=== PATIENT | female | born 1925 | race Caucasian/White ===

== ENCOUNTER 2016-09-06 02:17 | Inpatient (IN) | payer MEDICARE ==
[~2016-09-06] VITALS: Ht 152.4 cm; Wt 52.9 kg
--- NOTE | ~2016-09-06 | HP ---
[facility] AGE: 89 Y [address] ROOM: [place] [address] LOCATION: GPCU ADMIT DATE: 09/06/2016 History & Physical DISCHARGE DATE: FAMILY PHYSICIAN: PHYSICIAN, UNKNOWN ATTENDING PHYSICIAN: RUBIN SIGALA DATE OF SERVICE: CHIEF COMPLAINT: Epigastric and right upper quadrant pain. HISTORY OF PRESENT ILLNESS: This is an 89-year-old female who says that since this Tuesday about 3 days ago, she has developed these epigastric pain as well as a right upper quadrant pain associated with chills. This pain has been going on and off and for the last 2 days has become constant pain and has been getting worse that is why she went to the outside facility in [place] for evaluation. Over there, the patient was found to have cholecystitis with gallstone pancreatitis. The patient was referred here for further care. REVIEW OF SYSTEMS: As mentioned in history of present illness. All other systems were reviewed and were negative except those mentioned in history of present illness. PAST MEDICAL HISTORY: 1. Hypothyroidism. 2. Hypertension. 3. Systemic lupus erythematosus. 4. Gastroesophageal reflux disease. ALLERGIES: THE PATIENT DENIES ANY ALLERGIES. HOME MEDICATIONS: Currently has been reconciled. SOCIAL HISTORY: The patient denies any cigarette or any illegal drug or any alcohol use. FAMILY HISTORY: Father from COPD complication from heavy smoking. Mother from old age from a cause that she could not remember. PAST SURGICAL HISTORY: 1. Tubal ligation. PATIENT'S NAME: [facility] AGE: 89 Y [address] ROOM: [place] [address] LOCATION: GPCU ADMIT DATE: 09/06/2016 History & Physical DISCHARGE DATE: FAMILY PHYSICIAN: PHYSICIAN, UNKNOWN ATTENDING PHYSICIAN: RUBIN SIGALA 2. Cataract surgery. 3. Wrist surgery. 4. Tonsillectomy. PHYSICAL EXAMINATION: VITAL SIGNS: At the time of my evaluation, temperature 98.1, heart rate 70, respirations 16, blood pressure 187/86, saturation 98% on room air. GENERAL APPEARANCE: Alert and oriented x3, in no acute distress. HEENT: Pupils equally round and reactive to light. Extraocular muscles intact. She does have icteric sclerae bilaterally. Nasal turbinates are normal bilaterally. She does have jaundice as well under her tongue. Dry oral mucosa. NECK: No JVD. CARDIOVASCULAR: Regular rate and rhythm. Normal S1 and S2. No murmur. No rubs. No gallops. RESPIRATORY: Clear to auscultation. No rales. No rhonchi. No wheezing. No crackles. ABDOMEN: Tenderness to palpation in the epigastric and right upper quadrant. Johnson sign positive. No palpable mass. Bowel sounds present. Soft. Nondistended. EXTREMITIES: She has edema in bilateral lower extremities. SKIN: No ulcer. No rash. No cyanosis. NEUROLOGICAL: Grossly nonfocal. LABORATORY DATA: Currently, labs are pending. Labs from the outside facility on the day of transfer show sodium 136, potassium 4.1, CO2 22, chloride 99, anion gap 19, AST 83, ALT 59, total bilirubin 2.6, alkaline phosphatase 234, total protein 6.6, albumin 3.8, globulin 2.8, creatinine 0.8, BUN 20, glucose 116, calcium 9.3, GFR 72, amylase 581, lipase 5890. White blood cell 11.6, hemoglobin 11.1, hematocrit 31.9, platelet 256. IMAGING STUDIES: CT abdomen and pelvis with contrast from the outside facility on the day of transfer showed mild dilatation of uncertain etiology. Further evaluation with ERCP may be required. Moderately distended gallbladder is mildly thick walled and has precocious cystic fluid. The possibility of a cholecystitis is not excluded, indeterminate 7 mm right lower lobe nodule. ASSESSMENT AND PLAN: 1. Regarding her sepsis secondary to cholecystitis and gallstone pancreatitis. N.p.o. Can have ice chips. IV fluids for hydration. Antibiotic coverage with IV Zosyn. GI consult in the morning for possible ERCP. General surgery consult for possible near the future cholecystectomy. Further plan depends on clinical course. IV Zofran for PATIENT'S NAME: ANA LILIA VIRAMONTES [facility] AGE: 89 Y [address] ROOM: [id number] [place], [place] [address] LOCATION: GPCU ADMIT DATE: 09/06/2016 History & Physical DISCHARGE DATE: FAMILY PHYSICIAN: PHYSICIAN, UNKNOWN ATTENDING PHYSICIAN: RUBIN SIGALA nausea. IV morphine for p.r.n. for pain. 2. Regarding her hypothyroidism. We will get a TSH and modify the home dose of levothyroxine if necessary. 3. Regarding her hypertension. Currently, systolic blood pressure is in the 180s. I will resume some of her home medications due to sepsis. In addition, I will add labetalol p.r.n. and also hydralazine p.r.n. Currently, the home medication is being reconciled. 4. Regarding her gastroesophageal reflux disease. Continue the home medication which includes proton pump inhibitor. 5. Regarding her systemic lupus erythematosus. Currently not in flare. We will continue the home medication which currently the home medication list is being reconciled. 6. DVT prophylaxis. She will be on compression devices in anticipation for procedure. 7. She is a DNR/DNI. Time spent in care on the day of admission 45 minutes where 15 minutes was spent on chart review and the remainder of the time was spent on interview and physical examination and counseling. The counseling includes going over the plan of care with the patient and the patient's son at the bedside and I answered all the questions and concerns to their satisfaction. Further plan will depend on clinical course. RUBIN SIGALA MD CC/rachel /[id number] D: [id number] T: [id number] HISTORY & PHYSICAL
--- NOTE | ~2016-09-06 | OR ---
PATIENT'S NAME: WANDER [facility] AGE: 89 Y [address] ROOM: [address] [address] LOCATION: GPCU ADMIT DATE: 09/06/2016 OR/Procedure Report DISCHARGE DATE: FAMILY PHYSICIAN: Juan Miguel Polo MD ATTENDING PHYSICIAN: RUBIN SIGALA SURGEON: Isidro Lemus MD MOBILE SALES ASSISTANT: Deborah Coto PA-C. DATE OF PROCEDURE: 09/08/2016 PREOPERATIVE DIAGNOSES: 1. History of gallstone pancreatitis. 2. Chronic cholecystitis, sludge. POSTOPERATIVE DIAGNOSES: 1. Acute cholecystitis, cholelithiasis. 2. No filling defects in common bile duct. PROCEDURE: Laparoscopic cholecystectomy with intraoperative cholangiogram. ANESTHESIA: General, 25 mL 0.5% Marcaine. SPECIMEN: Gallbladder with purulent bile and stone debris. CHOLANGIOGRAM FINDINGS: Correct anatomy identified. Mildly dilated common bile duct, but taper into the ampulla with free flow of contrast into the duodenum. No filling defects. INDICATION: The patient is an 89-year-old young lady, admitted to the hospital with gallstone pancreatitis over the observation. Her liver function tests were resolving. MRCP did not find any common bile duct stone, it was elected to do a gallbladder removal for cholecystitis on ultrasound. We planned a cholangiogram for a common bile duct assessment. DESCRIPTION OF PROCEDURE: After an informed consent, the patient was taken to the operating room, and after general endotracheal anesthesia, the patient's abdomen was prepped and draped into a sterile field. Time-out performed. We confirmed the patient, planned procedure, and administration of preop antibiotics. Local anesthetic was infiltrated prior to each incision, the first one made below the umbilicus and carried down to identify the anterior fascia through which a Veress needle inserted and pneumoperitoneum created. Trocar and laparoscope were inserted under direct vision, and the remaining trocars were placed. The gallbladder was pale, it was distended, it was thick walled, it was retracted cephalad and laterally and we stripped down edematous hepatoduodenal ligament. There was a mildly dilated cystic duct which we circumferentially isolated, placed a cholangiogram catheter and used Isovue-30 PATIENT'S NAME: W[facility]ER [facility] AGE: 89 Y [address] ROOM: [address] [address] LOCATION: [facility] ADMIT DATE: 09/06/2016 OR/Procedure Report DISCHARGE DATE: FAMILY PHYSICIAN: Juan Miguel Polo MD ATTENDING PHYSICIAN: RUBIN SIGALA contrast and performed the cholangiogram with the above-mentioned results. We removed the catheter, clipped the duct x3 distally, and divided. Cystic artery was clipped and divided. The gallbladder was removed from liver bed, placed into an EndoCatch bag, and brought out through the umbilical incision. We irrigated the right upper quadrant. We obtained hemostasis with electrocautery to the gallbladder fossa. We then removed the trocar, repaired the midline fascia defects with 0 Vicryl, skin closed with subcuticular 4-0 Vicryl. Steri-Strips and sterile dressings were applied. The patient tolerated the procedure well and transferred to recovery room in stable condition. ISIDRO LEMUS MD WTS/modl /[id number] CC: Juan Miguel Polo MD d: 09/08/16 1844 t: 09/10/16 0912, OPERATIVE SUMMARY
--- NOTE | ~2016-09-06 | CON ---
PATIENT'S NAME: ANA LILIA VIRAMONTES [facility] AGE: 89 Y [address] ROOM: [id number] [place], [place] [address] LOCATION: GPCU ADMIT DATE: 09/06/2016 Consultation DISCHARGE DATE: FAMILY PHYSICIAN: Juan Miguel Polo MD ATTENDING PHYSICIAN: RUBIN SIGALA DATE OF CONSULTATION: 09/06/2016 REFERRING PHYSICIAN: Kelton Castellon MD REASON FOR CONSULTATION: Abdominal pain, elevated liver function tests. HISTORY OF PRESENT ILLNESS: This is a very pleasant 89-year-old female who was recently transferred from [facility] with abdominal pain in the right upper quadrant as well as mid-epigastric area. The patient states that on Tuesday the symptoms began intermittently, but became progressively worse with radiation into the right quadrant as well as into her back. She denied any associated nausea or vomiting at that time, as well as fever or chills. She also denies any change in her bowel patterns during this time. She was evaluated at [facility] with lab noted with increased elevated liver function tests including total bilirubin of 2.6, AST of 83, ALT of 59, lipase was also elevated at 5890, white blood cell count was mildly elevated at 11.6. A CT was completed showing hypervascular lesion; hemangioma; intrahepatic and extrahepatic biliary dilation of the common bile duct measuring 8 mm at the pancreatic head; gallbladder was mildly distended, thick walled with pericholecystic fluid. The patient was transferred to [facility] for further evaluation. The patient was seen and examined. She does state that the pain is intermittently in intensity. She does deny any magalie fever or chills. She has been afebrile while at [facility]. On evaluation, the patient's laboratory was completed, which now showing white blood cell count of 15.8, total bilirubin increased at 4.3, AST of 95, ALT of 62, alkaline phosphatase of 241, and lipase decreased to 4837. The patient denies any acute chest pain, chest pressure, or shortness of breath. She does endorse some abdominal pain in her mid epigastric area with radiation into her back as well as right upper quadrant. Denies any magalie fever, chills, nausea, or vomiting. PAST MEDICAL HISTORY: Hypothyroidism, hypertension, systemic lupus, and gastroesophageal reflux disease. PAST SURGICAL HISTORY: [facility] AGE: 89 Y [address] ROOM: [place] [address] LOCATION: GPCU ADMIT DATE: 09/06/2016 Consultation DISCHARGE DATE: FAMILY PHYSICIAN: Juan Miguel Polo MD ATTENDING PHYSICIAN: RUBIN SIGALA Tubal ligation, cataract, wrist, and tonsillectomy. SOCIAL HISTORY: Denies any ongoing toxic habits. FAMILY HISTORY: The patient's father had COPD. ALLERGIES: PEANUT CAUSES ANAPHYLAXIS. CURRENT MEDICATIONS: Please refer to the medication administration record. REVIEW OF SYSTEMS: An all-point review of systems was completed. All were negative except for those identified in the history of present illness. PHYSICAL EXAMINATION: GENERAL: [facility] 89-year-[facility] female who appears to be in no acute distress. VITAL SIGNS: Temperature 98.2, pulse 61, respirations 15, blood pressure 162/68, and oxygen saturations 97% on room air. SKIN: [place], warm, dry. No jaundice. HEENT: Head is normocephalic and atraumatic. Pupils equal, round, and reactive to light. Sclerae are mildly icteric. Oral mucosa is pink and moist. No thyromegaly. NECK: Soft and supple. CARDIOVASCULAR: Regular. Normal S1, S2. RESPIRATORY: Respirations are even and unlabored. Lungs are clear to auscultation. ABDOMEN: Soft, round, and mildly distended. Bowel sounds are hypoactive x4 quadrants. Positive Johnson's with negative rebound and guarding. MUSCULOSKELETAL: No muscle weakness or atrophy. EXTREMITIES: No clubbing, cyanosis, or edema. NEUROLOGICAL: 1+ bilateral pitting edema noted to bilateral lower extremities. ASSESSMENT AND PLAN: Again, this is a [facility] 89-year-old female, admitted from [facility] with acute cholecystitis, elevated liver function tests, as well as pancreatitis. 1. Elevated liver function tests. At this time, this was discussed with Dr. Navarro Jackson. We will go forth with an MRCP for further evaluation of the patient's biliary tree, ruling out choledocholithiasis versus [facility] AGE: 89 Y [address] ROOM: [place] [address] [facility] AD[facility] DATE: 09/06/2016 Consultation DISCHARGE DATE: FAMILY PHYSICIAN: Juan Miguel Polo MD ATTENDING PHYSICIAN: RUBIN SIGALA. Further recommendations to be given status post MRCP. 2. Cholecystitis. Surgery has evaluated the patient. We will await for MRCP for further recommendations. 3. Pancreatitis secondary to likely gallstone. Continue IV hydration. The patient is on Zosyn in lieu of her cholangitic symptoms as well, this should be continued. 4. Cholangitis. The patient currently is on Zosyn, this should be continued. Further recommendations to be given after receipt of MRCP. Thank you for this consult. AR GAMEZ APRN FOR MD CODY ARMENDARIZ/rachel /[id number] d: 09/06/162022 t: 09/14/16 0742, CONSULTATION REPORT
--- NOTE | ~2016-09-06 | CON ---
[facility] AGE: 89 Y [address] ROOM: [place] [address] LOCATION: GPCU ADMIT DATE: 09/06/2016 Consultation DISCHARGE DATE: FAMILY PHYSICIAN: Juan Miguel Polo MD ATTENDING PHYSICIAN: RUBIN SIGALA DATE OF CONSULTATION: 09/06/2016 CHIEF COMPLAINT: Right upper quadrant and epigastric pain. HISTORY OF PRESENT ILLNESS: An 89-year-old female, states she had an onset of epigastric pain on Tuesday, that was intermittent, off and on, but slowly getting worse, radiating to the right upper quadrant and then around to her back. She denies any nausea or vomiting during this time. She denies any change in bowel patterns during this time. She states that she has never had a similar event. She was see at an outside hospital and worked up with labs and CT, found to have cholecystitis with gallstone pancreatitis. She was transferred to [facility] for further evaluation and care. Reason for consultation for possible cholecystectomy. REVIEW OF SYSTEMS: GENERAL: No fever, no chills. HEENT: No change in vision. No trouble swallowing. PULMONARY: No cough. CARDIAC: No palpitations, no chest pain. GI: Negative for nausea and vomiting. Change in bowel pattern. Positive abdominal pain. MUSCULOSKELETAL: Positive for lower extremity, mild. All other systems negative. PAST MEDICAL HISTORY: 1. Hypothyroidism. 2. Hypertension. 3. Systemic lupus erythematosus. 4. Gastroesophageal reflux disease. ALLERGIES: NO KNOWN ALLERGIES. HOME MEDICATIONS: See med list. PATIENT'S NAME: ANA LILIA VIRAMONTES [facility] AGE: 89 Y [address] ROOM: [place] [address] LOCATION: GPCU ADMIT DATE: 09/06/2016 Consultation DISCHARGE DATE: FAMILY PHYSICIAN: Juan Miguel Polo MD ATTENDING PHYSICIAN: RUBIN SIGALA SOCIAL HISTORY: Denies cigarettes or alcohol use. FAMILY HISTORY: Father with COPD secondary to smoking. PAST SURGICAL HISTORY: Tubal ligation, cataract, wrist, tonsillectomy. PHYSICAL EXAMINATION: VITAL SIGNS: BP 132/63, heart rate 91, respirations 16, temperature 98, oxygen saturation 96% on room air. GENERAL: No apparent distress. Alert, oriented. HEENT: Eyes without scleral icterus, conjunctival surface is moist. Mucous membrane is moist. NECK: Supple, no adenopathy. PULMONARY: Clear to auscultation. CARDIAC: Regular rate and rhythm. ABDOMEN: Bowel sounds positive, generalized tenderness; however, more severe in the epigastric and right upper quadrant. Positive Johnson, negative rebound, negative guarding. EXTREMITIES: 1+ bilateral lower extremities pitting edema, peripheral pulses present x4. ASSESSMENT AND PLAN: An 89-year-old female admitted from outside hospital for cholecystitis and gallstone pancreatitis. 1. Cholecystitis: We will continue to monitor at this point and plan for possible cholecystectomy once her pancreatitis has calmed down. 2. Pancreatitis: She is also being followed by GI, who is planning a possibly ERCP today. 3. Hypertension: Continue home medications per hospitalist. 4. Hypothyroid: Continue home meds per hospitalist. 5. SLE: Continue medications per hospitalist. GEE SAGASTUME MD RESIDENT FOR DEMI LEMUS MD MR/modl /[id number] d: 09/06/165 t: 09/06/162034, CONSULTATION REPORT
--- NOTE | ~2016-09-06 | DS ---
PATIENT'S NAME: ANA LILIA VIRAMONTES [facility] AGE: 89 Y [address] ROOM: [address] [place], [place] [address] LOCATION: GPCU ADMIT DATE: 09/06/2016 Discharge Summary DISCHARGE DATE: 09/10/2016 FAMILY PHYSICIAN: Juan Miguel Polo MD ATTENDING PHYSICIAN: Abdirahman Cheng DISCHARGE DIAGNOSES: 1. Cholangitis secondary to gallstones. 2. Cholecystitis secondary to gallstones. 3. Pancreatitis secondary to gallstones. 4. Hepatitis secondary to gallstones. 5. Hypertension. 6. Hypothyroidism. 7. Lupus, chronic. 8. Gastroesophageal reflux disease. 9. Anemia, chronic and postop. PROCEDURES: She had a laparoscopic cholecystectomy with intraoperative cholangiogram, Dr. Isbell. REASON FOR ADMISSION: Abdominal pain. Initial white count was 11.1, came down to normal; initial hemoglobin was 8.4, it is up to 9.1, so it is low but stable; platelets have been normal. Her electrolytes and kidney function have remained normal. Chloride was off slightly, but everything else was normal. Her potassium did dip down, but it on her last check was 4.0, and she is doing well. Albumin is low with secondarily decreased calcium. ALT has come down from 68 to 67, ALT is normalized, alkaline phosphatase has reduced from 163 to 148, total bilirubin from 4.9 to 1.3. Urine was benign. Lipase initially was 635, down to 362. Amylase is checked, it remains elevated, we do not have a trend, I suspect it is on the way down because clinically she is much better. HOSPITAL COURSE: Postop, as I said, was one of trending improvement. The intraoperative cholangiogram showed no intraductal filling defects. She will be discharged on diet as tolerated with emphasis on protein and recovery. Activity will be as tolerated. Dr. Isbell said he could see her p.r.n., but no appointment scheduled with him, we will have her see primary care, Dr. Polo, in [place] in 2 weeks. PHYSICAL EXAMINATION: GENERAL: Today, she looks wonderful, smiling. CHEST: Clear. HEART: Regular rate and rhythm without murmur. ABDOMEN: Belly is soft, only tender in the right upper quadrant but appropriately. No HSM or masses. EXTREMITIES: Non-swollen. PATIENT'S NAME: ANA LILIA VIRAMONTES [facility] AGE: 89 Y [address] ROOM: [place] [address] LOCATION: GPCU ADMIT DATE: 09/06/2016 Discharge Summary DISCHARGE DATE: 09/10/2016 FAMILY PHYSICIAN: Juan Miguel Polo MD ATTENDING PHYSICIAN: Abdirahman Cheng DISPOSITION: She is ready to get out of here. MEDICATIONS: Per nursing med recon form, reference is made to that. Note that discharge took less than 0.5 hour. MD CHUCK AU/modl /[id number] d: 09/11/16 0200 t: 09/13/16 1311, DISCHARGE SUMMARY
--- NOTE | ~2016-09-06 | CON ---
[facility] AGE: 89 Y [address] ROOM: [place] [address] LOCATION: GPCU ADMIT DATE: 09/06/2016 Consultation DISCHARGE DATE: FAMILY PHYSICIAN: Juan Miguel Polo MD ATTENDING PHYSICIAN: RUBIN SIGALA DATE OF CONSULTATION: 09/06/2016 CHIEF COMPLAINT: Right upper quadrant and epigastric pain. HISTORY OF PRESENT ILLNESS: An 89-year-old female, states she had an onset of epigastric pain on Tuesday, that was intermittent, off and on, but slowly getting worse, radiating to the right upper quadrant and then around to her back. She denies any nausea or vomiting during this time. She denies any change in bowel patterns during this time. She states that she has never had a similar event. She was see at an outside hospital and worked up with labs and CT, found to have cholecystitis with gallstone pancreatitis. She was transferred to [facility] for further evaluation and care. Reason for consultation for possible cholecystectomy. REVIEW OF SYSTEMS: GENERAL: No fever, no chills. HEENT: No change in vision. No trouble swallowing. PULMONARY: No cough. CARDIAC: No palpitations, no chest pain. GI: Negative for nausea and vomiting. Change in bowel pattern. Positive abdominal pain. MUSCULOSKELETAL: Positive for lower extremity, mild. All other systems negative. PAST MEDICAL HISTORY: 1. Hypothyroidism. 2. Hypertension. 3. Systemic lupus erythematosus. 4. Gastroesophageal reflux disease. ALLERGIES: NO KNOWN ALLERGIES. HOME MEDICATIONS: See med list. PATIENT'S NAME: ANA LILIA VIRAMONTES [facility] AGE: 89 Y [address] ROOM: [place] [address] LOCATION: GPCU ADMIT DATE: 09/06/2016 Consultation DISCHARGE DATE: FAMILY PHYSICIAN: Juan Miguel Polo MD ATTENDING PHYSICIAN: RUBIN SIGALA SOCIAL HISTORY: Denies cigarettes or alcohol use. FAMILY HISTORY: Father with COPD secondary to smoking. PAST SURGICAL HISTORY: Tubal ligation, cataract, wrist, tonsillectomy. PHYSICAL EXAMINATION: VITAL SIGNS: BP 132/63, heart rate 91, respirations 16, temperature 98, oxygen saturation 96% on room air. GENERAL: No apparent distress. Alert, oriented. HEENT: Eyes without scleral icterus, conjunctival surface is moist. Mucous membrane is moist. NECK: Supple, no adenopathy. PULMONARY: Clear to auscultation. CARDIAC: Regular rate and rhythm. ABDOMEN: Bowel sounds positive, generalized tenderness; however, more severe in the epigastric and right upper quadrant. Positive Johnson, negative rebound, negative guarding. EXTREMITIES: 1+ bilateral lower extremities pitting edema, peripheral pulses present x4. ASSESSMENT AND PLAN: An 89-year-old female admitted from outside hospital for cholecystitis and gallstone pancreatitis. 1. Cholecystitis: We will continue to monitor at this point and plan for possible cholecystectomy once her pancreatitis has calmed down. 2. Pancreatitis: She is also being followed by GI, who is planning a possibly ERCP today. 3. Hypertension: Continue home medications per hospitalist. 4. Hypothyroid: Continue home meds per hospitalist. 5. SLE: Continue medications per hospitalist. GEE SAGASTUME MD RESIDENT FOR DEMI LEMUS MD MR/modl /[id number] d: 09/06/16 1305 t: 09/29/16 1609, CONSULTATION REPORT
[2016-09-06] MEDS ORDERED: BYSTOLIC10 MG PO (02:47)
[2016-09-06] MEDS ORDERED: DIOVAN80 MG PO (02:48)
[2016-09-06] MEDS ORDERED: PLAQUENIL200 MG PO (02:48)
[2016-09-06] MEDS ORDERED: K-TAB 10MEQ10 MEQ PO (02:48)
[2016-09-06] MEDS ORDERED: NORVASC5 MG PO (02:48)
[2016-09-06] MEDS ORDERED: CLINORIL200 MG PO (02:49)
[2016-09-06] MEDS ORDERED: PRILOSEC20 MG PO (02:49)
[2016-09-06] MEDS ORDERED: LEVOTHROID (SY50 MCG PO (02:50)
[2016-09-06 04:09] LABS: HEMATOCRIT 29.7 % (30.0-46.0); HEMOGLOBIN 10.4 g/dL (10.0-15.0); MCH 32.2 pg (27.0-34.0); MPV 9.5 fl (9.4-12.4); PLATELET COUNT 218 K/uL (150-450); RBC 3.23 M/uL (3.00-5.00); RDW-CV 12.6 % (11.9-14.6); WBC 15.8 K/uL (4.0-11.0)
[2016-09-06 04:26] LABS: INR - (THERAPEUTIC) 0.93 (0.92-1.07); PROTIME 9.8 SECONDS (9.8-11.4); PTT 25 SECONDS (25-32)
[2016-09-06 04:34] LABS: ALBUMIN 3.1 gm/dL (3.5-5.0); ANION GAP 13.3 (10.0-19.0); CALCIUM 8.3 mg/dL (8.5-10.5); CREATININE 0.9 mg/dL (0.5-1.1); POTASSIUM 3.3 mMol/L (3.7-5.1); TOTAL BILIRUBIN 3.7 mg/dL (0.0-1.5); TOTAL PROTEIN 6.4 g/dL (6.0-8.4)
[2016-09-06 05:01] LABS: CPK 45 IU/L (21-215)
[2016-09-06 06:01] LABS: ABSOLUTE NEUTROPHIL CT (ANC) 14.9 K/uL (1.8-7.8); BANDED NEUTROPHIL # 1.9 K/uL (0.0-0.1); BANDED NEUTROPHILS % 12 %; LYMPHOCYTE # 0.6 K/uL (0.8-4.0); LYMPHOCYTE % 4 %; MONOCYTE # 0.3 K/uL (0.0-1.0); SEGMENTED NEUTROPHIL % 82 %
[2016-09-06 09:15] LABS: HEMOGLOBIN 10.3 g/dL (10.0-15.0); MCH 32.2 pg (27.0-34.0); MCHC 34.3 gm/dL (32.0-36.5); MCV 93.8 fl (83.0-98.0); MPV 9.4 fl (9.4-12.4); RBC 3.2 M/uL (3.00-5.00); RDW-CV 12.8 % (11.9-14.6); WBC 17.7 K/uL (4.0-11.0)
[2016-09-06 09:25] LABS: INR - (THERAPEUTIC) 0.95 (0.92-1.07)
[2016-09-06 09:32] LABS: ALBUMIN 2.9 gm/dL (3.5-5.0); ANION GAP 13.1 (10.0-19.0); CALCIUM 8.3 mg/dL (8.5-10.5); POTASSIUM 4.1 mMol/L (3.7-5.1); TOTAL BILIRUBIN 4.3 mg/dL (0.0-1.5); TOTAL PROTEIN 6.1 g/dL (6.0-8.4)
[2016-09-06 16:35] LABS: BILIRUBIN URINE NEGATIVE (NEGATIVE); BLOOD URINE 50 /UL (NEGATIVE); COLOR URINE YELLOW (YELLOW); GLUCOSE URINE NEGATIVE (NEGATIVE); KETONE URINE NEGATIVE (NEGATIVE); LEUKOCYTES URINE 100 /UL (NEGATIVE); NITRITE URINE POSITIVE (NEGATIVE); PROTEIN URINE 30 mg/dL (NEGATIVE); SPEC GRAVITY URINE 1.015 (1.003-1.035); TURBIDITY URINE CLEAR (CLEAR); UROBILINOGEN URINE NORMAL (NORMAL)
[2016-09-06 16:54] LABS: BACTERIA URINE MODERATE (NEGATIVE)
[2016-09-07 03:32] LABS: HEMATOCRIT 24.8 % (30.0-46.0); HEMOGLOBIN 8.4 g/dL (10.0-15.0); MCH 31.9 pg (27.0-34.0); MCHC 33.9 gm/dL (32.0-36.5); MCV 94.3 fl (83.0-98.0); MPV 9.5 fl (9.4-12.4); RBC 2.63 M/uL (3.00-5.00); RDW-CV 13.4 % (11.9-14.6); WBC 11.1 K/uL (4.0-11.0)
[2016-09-07 03:41] LABS: INR - (THERAPEUTIC) 1.09 (0.92-1.07); PROTIME 11.5 SECONDS (9.8-11.4)
[2016-09-07 03:47] LABS: PLATELET COUNT 161 K/uL (150-450)
[2016-09-07 03:53] LABS: ALBUMIN 2.2 gm/dL (3.5-5.0); ANION GAP 12.7 (10.0-19.0); CREATININE 1.1 mg/dL (0.5-1.1); POTASSIUM 3.7 mMol/L (3.7-5.1); TOTAL BILIRUBIN 4.9 mg/dL (0.0-1.5)
[2016-09-07 04:58] LABS: BANDED NEUTROPHIL # 1.3 K/uL (0.0-0.1); BANDED NEUTROPHILS % 12 %; LYMPHOCYTE % 9 %; MONOCYTE # 0.1 K/uL (0.0-1.0); SEGMENTED NEUTROPHIL # 8.7 K/uL (1.8-7.8); SEGMENTED NEUTROPHIL % 78 %
[2016-09-08 04:17] LABS: BASOPHIL % 0.3 %; EOSINOPHIL # 0.2 K/uL (0.0-0.5); EOSINOPHIL % 2.8 %; HEMATOCRIT 25.3 % (30.0-46.0); HEMOGLOBIN 8.8 g/dL (10.0-15.0); IMMATURE GRANULOCYTE % 0.4 %; LYMPHOCYTE # 0.9 K/uL (0.8-4.0); LYMPHOCYTE % 11.3 %; MCH 32.2 pg (27.0-34.0); MCHC 34.8 gm/dL (32.0-36.5); MCV 92.7 fl (83.0-98.0); MONOCYTE # 0.6 K/uL (0.0-1.0); MONOCYTE % 7.3 %; MPV 9.7 fl (9.4-12.4); NEUTROPHIL % 77.9 %; NRBC % 0 /100WBC (0-0.00); PLATELET COUNT 182 K/uL (150-450); RBC 2.73 M/uL (3.00-5.00); RDW-CV 13.3 % (11.9-14.6); WBC 7.8 K/uL (4.0-11.0)
[2016-09-08 04:32] LABS: ALBUMIN 2.1 gm/dL (3.5-5.0); CALCIUM 8.2 mg/dL (8.5-10.5); CREATININE 0.7 mg/dL (0.5-1.1); TOTAL PROTEIN 5.2 g/dL (6.0-8.4)
[2016-09-08 04:43] LABS: ANION GAP 9.8 (10.0-19.0); POTASSIUM 2.8 mMol/L (3.7-5.1); TOTAL BILIRUBIN 1.9 mg/dL (0.0-1.5)
[2016-09-08 17:17] LABS: ANION GAP 11.2 (10.0-19.0); CALCIUM 8.2 mg/dL (8.5-10.5); CREATININE 0.6 mg/dL (0.5-1.1); POTASSIUM 3.2 mMol/L (3.7-5.1)
[2016-09-09 04:02] LABS: BASOPHIL % 0.3 %; EOSINOPHIL # 0.2 K/uL (0.0-0.5); EOSINOPHIL % 2.6 %; HEMATOCRIT 26.9 % (30.0-46.0); HEMOGLOBIN 9.1 g/dL (10.0-15.0); IMMATURE GRANULOCYTE % 0.3 %; LYMPHOCYTE # 0.9 K/uL (0.8-4.0); LYMPHOCYTE % 11.7 %; MCH 31.7 pg (27.0-34.0); MCHC 33.8 gm/dL (32.0-36.5); MCV 93.7 fl (83.0-98.0); MONOCYTE # 0.5 K/uL (0.0-1.0); MONOCYTE % 6.7 %; MPV 9.9 fl (9.4-12.4); NEUTROPHIL % 78.4 %; NRBC % 0 /100WBC (0-0.00); PLATELET COUNT 210 K/uL (150-450); RBC 2.87 M/uL (3.00-5.00); RDW-CV 13.3 % (11.9-14.6); WBC 7.7 K/uL (4.0-11.0)
[2016-09-09 04:14] LABS: ALBUMIN 2.3 gm/dL (3.5-5.0); CALCIUM 8.4 mg/dL (8.5-10.5); CREATININE 0.6 mg/dL (0.5-1.1); MAGNESIUM 1.8 mg/dL (1.8-2.6); TOTAL PROTEIN 5.6 g/dL (6.0-8.4)
[2016-09-09 04:18] LABS: TOTAL BILIRUBIN 1.3 mg/dL (0.0-1.5)
[2016-09-09 12:24] LABS: BILIRUBIN URINE NEGATIVE (NEGATIVE); BLOOD URINE NEGATIVE /UL (NEGATIVE); COLOR URINE YELLOW (YELLOW); GLUCOSE URINE NEGATIVE (NEGATIVE); KETONE URINE NEGATIVE (NEGATIVE); LEUKOCYTES URINE NEGATIVE /UL (NEGATIVE); NITRITE URINE NEGATIVE (NEGATIVE); PH URINE 6.5 (4.0-8.0); PROTEIN URINE NEGATIVE (NEGATIVE); TURBIDITY URINE CLEAR (CLEAR); UROBILINOGEN URINE NORMAL (NORMAL)
[2016-09-10] MEDS ORDERED: FLOMAX0.4 MG PO (11:00)
== END 2016-09-10 11:25 | disposition disaster alternative care site (69) | DRG 853 ==
LOC: GPCU 02:17
PROVIDERS: Family Medicine; Internal Medicine; Physician Assistant; ADMIT Internal Medicine
PROC: BF101ZZ Fluoroscopy of Bile Ducts using Low Osmolar Contrast (ICD-10-PCS; principal; 2016-09-08)
PROC: 0FT44ZZ Resection of Gallbladder, Percutaneous Endoscopic Approach (ICD-10-PCS; principal; 2016-09-08)
DX: A41.9 Sepsis, unspecified organism (principal); K85.10 Biliary acute pancreatitis without necrosis or infection; K83.0 Cholangitis; K80.12 Calculus of gallbladder with acute and chronic cholecystitis without obstruction; M32.9 Systemic lupus erythematosus, unspecified; E87.70 Fluid overload, unspecified; R65.20 Severe sepsis without septic shock; K75.89 Other specified inflammatory liver diseases; Z66 Do not resuscitate; I10 Essential (primary) hypertension; E03.9 Hypothyroidism, unspecified; K21.9 Gastro-esophageal reflux disease without esophagitis; Z91.010 Allergy to peanuts; D64.9 Anemia, unspecified; E87.6 Hypokalemia
CPT/HCPCS: J2270; J2405; J2543; J3010; J3480; J7030; J7050